=== PATIENT | female | born 1995 | race Caucasian/White ===

== ENCOUNTER 2018-01-26 19:15 | Emergency (ER) | payer OTHER ==
[2018-01-26 20:34] VITALS: BP 125/63
--- NOTE | 2018-01-26 20:47 | UC ---
Throat Pain/Nasal Harjinder HPI - HPI Summary HPI Summary: 22-year-old woman comes to clinic today with 10 days of illness. Started with a really painful sore throat and fevers and feeling very ill. Gradually that improved but now the symptoms going back with the sore throat and the headaches. Pain in the neck is in the anterior aspects. The headache is been more frontal. IBUProfen helps with pain. At this time the patient has no headache and she has no fever. She has no stiff neck. No cough or chest congestion. - History of Current Complaint Chief Complaint: UCRespiratory Stated Complaint: SORE THROAT/COLD SYMPTOMS Time Seen by Provider: 01/26/18 20:30 Hx Last Menstrual Period: spotting /15 Pain Intensity: 5 - Allergies/Home Medications Allergies/Adverse Reactions: Allergies Allergy/AdvReac Type Severity Reaction Status Date / Time No Known Allergies Allergy Verified 01/26/18 20:25 Home Medications: Home Medications D-Methorphan/PE/Acetaminophen [Theraflu Expressmax Sever 20-10-650 mg/30Ml] 1 liq PO BID PRN 01/26/18 [History Confirmed 01/26/18] Ibuprofen TAB* [Motrin TAB* 600 MG] 600 mg PO BID PRN 01/26/18 [History Confirmed 01/26/18] medroxyPROGESTERone ACETATE* [DEPO-Provera] 150 mg IM SEE INSTRUCTIONS 01/26/18 [History Confirmed 01/26/18] PMH/Surg Hx/FS Hx/Imm Hx Previously Healthy: Yes - Surgical History Surgical History: Yes Surgery Procedure, Year, and Place: tonsils - Family History Known Family History: Negative: Diabetes - Social History Alcohol Use: Weekly Alcohol Amount: 10 Substance Use Type: None Smoking Status (MU): Never Smoked Tobacco Review of Systems Constitutional: Fever Skin: Negative Eyes: Negative ENT: Sore Throat, Nasal Discharge Respiratory: Negative Cardiovascular: Negative Gastrointestinal: Negative Motor: Negative Neurovascular: Negative Musculoskeletal: Negative Neurological: Headache Psychological: Negative Is Patient Immunocompromised?: No All Other Systems Reviewed And Are Negative: Yes Physical Exam Triage Information Reviewed: Yes Appearance: Well-Appearing, No Pain Distress, Well-Nourished Vital Signs: Initial Vital Signs Temp 99 F 01/26/18 20:29 Pulse 86 01/26/18 20:29 Resp 22 01/26/18 20:29 BP 125/63 01/26/18 20:29 Pulse Ox 100 01/26/18 20:29 Vital Signs Reviewed: Yes Eye Exam: Normal Eyes: Positive: Conjunctiva Clear ENT: Positive: Pharyngeal erythema, Nasal congestion, Nasal drainage, TMs normal Neck exam: Normal Neck: Positive: Supple, Tenderness @ - Patient is tender over her anterior lymph nodes bilaterally. She does have swollen lymph nodes anteriorly. No posterior lymph nodes. Neck is supple full range of motion. Respiratory: Positive: Lungs clear, Normal breath sounds, No respiratory distress Cardiovascular: Positive: RRR Musculoskeletal Exam: Normal Musculoskeletal: Positive: Strength Intact, ROM Intact Neurological Exam: Normal Neurological: Positive: Alert, Muscle Tone Normal Psychological Exam: Normal Psychological: Positive: Age Appropriate Behavior Skin Exam: Normal Throat Pain/Nasal Course/Dx - Course Course Of Treatment: Plan is to treat with Augmentin and follow-up with [facility]. Thought the patient know if things get worse she should get reevaluated right away to include going to the emergency department if needed. - Differential Dx/Diagnosis Provider Diagnoses: PHARYNGITIS. LYMPHADENOPATHY Discharge - Sign-Out/Discharge Documenting (check all that apply): Patient Departure All imaging exams completed and their final reports reviewed: No Studies - Discharge Plan Condition: Stable Disposition: HOME Prescriptions: Amoxicillin/Clavulanate TAB* [Augmentin TAB 875*] 875 mg PO BID #18 tab Patient Education Materials: Pharyngitis (ED), Lymphadenopathy (ED) Referrals: [facility] [Outside] Additional Instructions: FOLLOW UP WITH YOUR DOCTOR IF NOT COMPLETELY IMPROVED. GO TO THE EMERGENCY DEPARTMENT FOR ANY WORSENING OF YOUR CONDITION; HEADACHE, STIFF NECK, YOU FEEL ILL OR QUESTIONS OR CONCERNS. - Billing Disposition and Condition Condition: STABLE Disposition: Home
[2018-01-26] MEDS ORDERED: Amoxicillin/Clavulanate TAB* 875 MG PO ONE (20:48)
[2018-01-26] MEDS: Amoxicillin/Clavulanate TAB* 875 MG PO ONE (20:58)
== END 2018-01-26 21:02 | disposition home or self-care (01) ==
LOC: UCCORT 19:15
DX: J02.9 Acute pharyngitis, unspecified (principal); R59.0 Localized enlarged lymph nodes
CPT/HCPCS: 99202; A9270-GY; G0463